=== PATIENT | male | born 1950 | race Caucasian/White ===

== ENCOUNTER 2020-11-28 20:24 | Emergency (ER) | payer MEDICARE ==
[~2020-11-28] VITALS: Ht 177.8 cm; Wt 97.7 kg
[2020-11-28 20:29] VITALS: BP 180/88
== END 2020-11-28 20:40 ==
LOC: ER 20:25
DX: Z04.1 Encounter for examination and observation following transport accident (principal); F10.129 Alcohol abuse with intoxication, unspecified; I10 Essential (primary) hypertension; Z72.89 Other problems related to lifestyle; Z98.890 Other specified postprocedural states; V87.7XXA Person injured in collision between other specified motor vehicles (traffic), initial encounter; Y93.89 Activity, other specified; Y92.89 Other specified places as the place of occurrence of the external cause; Y99.8 Other external cause status; Y90.9 Presence of alcohol in blood, level not specified
CPT/HCPCS: 99283